=== PATIENT | male | born 1970 | race Caucasian/White ===

== ENCOUNTER 2018-04-15 21:41 | Emergency (ER) | payer OTHER ==
[2018-04-15] MEDS ORDERED: Dexamethasone 4 mg/ml Vial ONE (22:32)
== END 2018-04-15 22:59 | disposition home or self-care (01) ==
LOC: ERS 21:41
DX: J02.9 Acute pharyngitis, unspecified (principal); F17.210 Nicotine dependence, cigarettes, uncomplicated
CPT/HCPCS: 87081; 87430; 96372; J1100

== ENCOUNTER 2018-10-22 14:27 | Emergency (ER) | payer OTHER, SELFPAY ==
[2018-10-22 15:00] LABS: #Basophils 0.1 thou/uL (0.0-0.2); #Eosinphils 0.1 thou/uL (0.0-0.7); #Lymphocytes 2.1 thou/uL (1.20-3.40); #Monocytes 0.5 thou/uL (0.11-0.59); #Neutrophils 5.5 thou/uL (1.40-6.50); %Basophils 0.8 % (0.0-1.0); %Eosinophils 1.4 % (0.0-10.0); %Lymphocytes 25.6 % (21.0-51.0); %Monocytes 5.5 % (0.0-10.0); %Neutrophils 66.7 % (42.0-75.0); Hemoglobin 16.1 g/dL (14.0-18.0); Mean Corpuscular HGB CONC 31.5 g/dL (32.0-36.0); Mean Corpuscular Hemoglobin 29.9 pg (27.0-31.0); Mean Corpuscular Volume 94.8 fL (78.0-98.0); Mean Platelet Volume 8.5 fL (7.4-10.4); Platelet Count 197 thou/uL (130-400); RBC Distribution Width 12.4 % (11.5-14.5); Red Blood Cell (RBC) Count 5.39 mill/uL (4.70-6.10); White Blood Cell (WBC) Count 8.3 thou/uL (4.8-10.8)
[2018-10-22 15:11] LABS: Bilirubin Small (Negative); Blood, Urine Negative (Negative); Clarity CLEAR (Clear); Glucose, Urine (Dipstick) Negative (Negative); Leukocyte Negative (Negative); Nitrite Negative (Negative); Protein, Urine (Dipstick) Negative (Neg-Trace); Specific Gravity, Urine 1.028 (1.002-1.036); pH, Urine 6.5 (5.0-9.0)
[2018-10-22 15:24] LABS: ALT (SGPT) 11 U/L (8-55); AST (SGOT) 17 U/L (5-34); Albumin 3.8 g/dL (3.5-5.0); Alkaline Phosphatase 87 U/L (40-150); Anion Gap 12 mmol/L (10-20); BUN (Urea Nitrogen) 10 mg/dL (8.9-20.6); Bilirubin, Total 0.3 mg/dL (0.2-1.2); Calc. Creatinine Clearance 0 mL/min (70-130); Calcium 8.9 mg/dL (7.8-10.44); Carbon Dioxide 25 mmol/L (22-29); Chloride 107 mmol/L (98-107); Estimated GFR-MDRD 78; Globulin 2.7 g/dL (2.4-3.5); Glucose 123 mg/dL (70-105); Lipase 46 U/L (8-78); Potassium 4.2 mmol/L (3.5-5.1); Protein, Total 6.5 g/dL (6.0-8.3); Sodium 140 mmol/L (136-145)
[2018-10-22] MEDS ORDERED: Ketorolac Tromethamine 60 MG/2 ML VIAL ONE (16:04)
--- NOTE | 2018-10-22 16:42 | CT ---
ABDOMEN CT WITHOUT CONTRAST CT PELVIS WITHOUT CONTRAST: Date: 10/22/18 HISTORY: Renal calculi. Intermittent flank pain. COMPARISON: None. FINDINGS: CT ABDOMEN: Lung bases are clear. Normal heart size. No significant pericardial fluid. Visualized aorta has a nor mal caliber. No periaortic fat stranding. Gallbladder is contracted, likely due to nonfasting stone. Limited evaluation of the solid organs due to lack of IV contrast administration. Grossly, no solid o rgan abnormality. No gastrohepatic, retrocrural, or periportal lymphadenopathy. No mesenteric mass, lymphadenopathy, free air, or free fluid. Limited evaluation of the alimentary canal by the lack of oral contrast. Multiple normal caliber smal l bowel loops. Ileocecal junction is normal. Normal caliber appendix. Scattered fecal material in a n ondistended, nondilated colon. Scattered diverticulum. No diverticulitis. Normal caliber appendix. Bilaterally, no hydronephrosis, nephrolithiasis, or perinephric fat stranding. Bilateral ureters have a normal caliber. No hydroureter, periureteral fat stranding, or ureterolithiasis. CT PELVIS: Unremarkable urinary bladder. No pelvic mass, lymphadenopathy, free air, or free fluid. No lytic or blastic lesions in the osseous structures. IMPRESSION: 1. No evidence of nephrolithiasis or obstructive uropathy. 2. Normal caliber appendix. POS: [facility]
== END 2018-10-22 17:25 | disposition home or self-care (01) ==
LOC: ERS 14:27
DX: R10.9 Unspecified abdominal pain (principal); F41.9 Anxiety disorder, unspecified; F90.9 Attention-deficit hyperactivity disorder, unspecified type; F17.210 Nicotine dependence, cigarettes, uncomplicated; Z87.442 Personal history of urinary calculi
CPT/HCPCS: 36415; 74176; 80053; 81003; 83690; 85025; 87086; 96372; J1885